=== PATIENT | female | born 1975 | race Caucasian/White ===

== ENCOUNTER 2019-12-03 13:32 | Emergency (ER) | payer SELFPAY ==
[2019-12-03] MEDS ORDERED: Acetaminophen TAB* 325 MG PO ONE (14:09)
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
[2019-12-03 15:19] VITALS: BP 121/78
== END 2019-12-03 15:18 | disposition home or self-care (01) ==
LOC: ED 13:32
DX: S16.1XXA Strain of muscle, fascia and tendon at neck level, initial encounter (principal); S09.90XA Unspecified injury of head, initial encounter; V49.40XA Driver injured in collision with unspecified motor vehicles in traffic accident, initial encounter; Y92.410 Unspecified street and highway as the place of occurrence of the external cause; Z88.5 Allergy status to narcotic agent
CPT/HCPCS: 70450; 72125; 99282; A9270-GY